=== PATIENT | female | born 1975 | race Caucasian/White ===

== ENCOUNTER 2020-08-08 06:55 | Outpatient (NON) | payer OTHER, SELFPAY ==
[2020-08-09 00:38] LABS: SARS-CoV-2 RNA PCR Negative
== END 2020-08-08 06:56 ==
PROVIDERS: PCP Physician Assistant; Visit Provider Physician Assistant
DX: Z20.828 Contact with and (suspected) exposure to other viral communicable diseases (principal)
CPT/HCPCS: 87635; C9803; U0003

== ENCOUNTER → 2021-11-24 00:12 | Outpatient (CLI) | payer OTHER, SELFPAY ==
[2021-11-24 20:23] LABS: SARS-CoV-2 RNA PCR Negative
== END ==
PROVIDERS: PCP Physician Assistant; Visit Provider Physician Assistant
DX: R68.89 Other general symptoms and signs (principal); Z20.822 Contact with and (suspected) exposure to COVID-19
CPT/HCPCS: C9803; U0003; U0005

== ENCOUNTER 2023-02-14 14:11 | Outpatient (CLI) | payer OTHER, SELFPAY ==
--- NOTE | ~2023-02-14 | MM_ITS ---
EXAMINATION: MM screening minna BI w vin HISTORY: Screening mammogram TECHNIQUE: Craniocaudal and mediolateral oblique 3-D tomosynthesis images were obtained and synthetic 2-D images were generated. CAD analysis was submitted and interpreted. COMPARISON: 08/14/2018 right diagnostic mammogram 07/30/2018 bilateral screening mammogram BREAST PARENCHYMAL COMPOSITION: There are scattered areas of fibroglandular density. FINDINGS: There is no evidence of suspicious mass, calcification, or architectural distortion to sugg est malignancy in either breast. There has been no suspicious interval change. IMPRESSION: 1. No mammographic evidence of malignancy. 2. Recommend routine screening mammography in one year. BI-RADS Category 1: Negative Reviewed, dictated and finalized at location A.
== END 2023-02-14 14:12 | disposition home or self-care (01) ==
LOC: ANHIMG 14:12
PROVIDERS: PCP Physician Assistant; Visit Provider Student in an Organized Health Care Education/Training Program
DX: Z12.31 Encounter for screening mammogram for malignant neoplasm of breast (principal)
CPT/HCPCS: 77063; 77067

== ENCOUNTER 2023-03-10 06:40 | Day surgery (SDC) | payer OTHER, SELFPAY ==
[2022-12-10 13:54] VITALS: BMI 21.7
[2023-03-04 08:41] VITALS: BMI 21.9
--- NOTE | 2023-03-07 15:21 | P.PNAN_ITS ---
Anes - Initial Pre Proc Eval Procedure: Operation Date: 03/10/23 08:30 Proposed Procedures p Screening Colonoscopy - Igor New MD Date/Time: 03/07/23 15:21 Surgeon: Igor New MD Pre Op Diagnosis: Family History of Colon Cancer Patient Data Age: 48 Gender: F Height: 1.7 m Weight: 63.5 kg Allergies Allergy/AdvReac Type Severity Reaction Status Date / Time Cephalosporins Allergy Mild unknown Verified 03/10/23 07:27 cephalexin Allergy Unknown Unknown Verified 03/10/23 07:27 Home Medications Medication Instructions Recorded Confirmed Type metoprolol succinate 25 mg 25 mg PO DAILY 09/04/21 03/10/23 History tablet,extended release 24 hr Patient hx anesthesia problems: none Family hx anesthesia problems: none Results Review: All pre-operative results and documents have been reviewed as part of the pre- operative evaluation. PMFSH Past Medical History Medical History History of miscarriage x2 History of x2 Hypertension Surgical History Surgical History History of delivery x 1 History of dilation and curettage 2007 x 1 Family History Family History (Updated 09/19/22 @ 14:04 by Mayra Spears MA) Father Hypertension Heart disease Mother Carcinoma of colon Sibling Depression Daughter Depression Grandparent Stomach cancer Bladder cancer Heart disease Family history of cardiovascular disease Other Cerebrovascular accident Diabetes mellitus Family history of arthritis Family history of malignant neoplasm Social History Social History Smoking status: Never smoker Alcohol intake: current Substance use: never Substance use type: does not use Living arrangements: alone Spiritual care concerns: No Anes - Eval Final PreProcedure Day of Procedure 03/07/23 15:21 Patient weight: normal Heart: regular rate and rhythm Lungs: clear to auscultation and normal air movement Airway: Mallampati scale class II Neurological: alert and oriented Last oral intake: >/= 8 hours ASA classification: II Emergent: no Anesthetic plan: proceed Anesthesia type and monitoring: general GIVS Results Review: All pre-operative results and documents have been reviewed as part of the pre- operative evaluation. Informed Consent: The patient's anesthetic plan and its attendant risks and benefits were discussed with the patient/family/POA. Questions were solicited and answers provided to the satisfaction of the patient/family/POA.
[2023-03-10 07:20] VITALS: BP 106/62; PULSE 77; RESP 20; TEMP 36.7; O2SAT 100
[2023-03-10] MEDS: LACTATED RINGERS 1,000 ML 150 ML IV CONT (07:43)
--- NOTE | 2023-03-10 08:12 | PM.HPGS ---
History of Present Illness History of Present Illness Consent: Risks, benefits, and alternatives have been discussed and questions answered. Patient agrees to proceed with procedure. Chief complaint: Family History of Colon Cancer Narrative: Dorothy Gasca is a 48 year old female here for first colonoscopy, mother had colon cancer at 58yo Review of Systems Constitutional: Constitutional: Denies headache(s) and Denies weakness Eyes: Eyes: Denies blurry vision ENT: Reports Normal hearing present, Denies headache(s) and Denies neck pain Cardiovascular: Cardiovascular: Denies chest pain and Denies dyspnea Respiratory: Respiratory: Denies dyspnea Gastrointestinal: Gastrointestinal: Reports no additional gastrointestinal complaints Genitourinary: Genitourinary: Denies dysuria Musculoskeletal: Musculoskeletal: Denies neck pain Integumentary/Breasts: Skin/Breast: Denies dry skin Neurologic: Reports Normal hearing present, Denies headache(s) and Denies weakness Psychiatric: Psychiatric: Denies anxiety Endocrine: Endocrine: Denies change in body appearance Hematologic/Lymphatic: Hematologic/Lymphatic: Denies easy bleeding Allergic/Immunologic: Allergic/Immunologic: Denies urticaria PMFSH Past Medical History Medical History (Updated 03/10/23 @ 08:13 by Igor New MD) Family history of colon cancer in mother History of miscarriage x2 History of x2 Hypertension Surgical History Surgical History History of delivery x 1 History of dilation and curettage 2007 x 1 Family History Family History (Updated 09/19/22 @ 14:04 by Mayra Spears MA) Father Hypertension Heart disease Mother Carcinoma of colon Sibling Depression Daughter Depression Grandparent Stomach cancer Bladder cancer Heart disease Family history of cardiovascular disease Other Cerebrovascular accident Diabetes mellitus Family history of arthritis Family history of malignant neoplasm Social History Social History Smoking status: Never smoker Alcohol intake: current Substance use: never Substance use type: does not use Living arrangements: alone Spiritual care concerns: No Meds Home Medications and Allergies Home Medications Medication Instructions Recorded Confirmed Type metoprolol succinate 25 mg 25 mg PO DAILY 09/04/21 03/10/23 History tablet,extended release 24 hr Allergies Allergy/AdvReac Type Severity Reaction Status Date / Time Cephalosporins Allergy Mild unknown Verified 03/10/23 07:27 cephalexin Allergy Unknown Unknown Verified 03/10/23 07:27 Vital Signs Vital Signs - 24 hr 03/10/23 07:20 Temperature 98.1 F Pulse Rate 77 Respiratory Rate 20 Blood Pressure 106/62 Pulse Oximetry 100 Oxygen Delivery Room Air Exam Const: General: comfortable and no acute distress HENMT: Face/Nose/Sinus: Normal nares present Eyes: General: appearance normal, both eyes and all related structures Neck: Neck: no JVD Resp: Auscultation: clear to auscultation bilaterally Cardio: Rate: regular rate Rhythm: regular rhythm GI: Inspection: non-distended GI Palp: Yes Soft to palpation Skin: General skin exam: normal color Neuro: General: gait normal Speech: normal speech Extrem: General: normal to inspection Psych: Mental Status: mental status grossly normal Assessment and Plan Assessment and plan (1) Family history of colon cancer in mother: Code(s): Z80.0 - Family history of malignant neoplasm of digestive organs Status: Acute Assessment and Plan: colonoscopy
[2023-03-10 08:41] VITALS: BP 93/62; PULSE 73; RESP 16; O2SAT 99
[2023-03-10 08:51] VITALS: BP 102/71; PULSE 66; RESP 16; O2SAT 100
[2023-03-10 09:01] VITALS: BP 101/70; PULSE 58; RESP 20; O2SAT 100
[2023-03-10] MEDS: ONDANSETRON INJ 4 MG/2 ML VIAL IV PUSH (09:04)
[2023-03-10 09:11] VITALS: BP 103/63; PULSE 63; RESP 20; O2SAT 100
--- NOTE | 2023-03-18 08:35 | WPDANESPN ---
Anes - Prog Note Post-Op Date/Time: 03/18/23 08:35 Cardiovascular status: normal Respiratory status: normal Airway patency: baseline Mental status: baseline Post-Op hydration status: normal Vital Signs: Last Vital Signs Temp 36.7 C 03/10/23 07:20 Pulse 63 03/10/23 09:11 Resp 20 03/10/23 09:11 BP 103/63 03/10/23 09:11 Pulse Ox 100 03/10/23 09:11 O2 Del Method Room Air 03/10/23 09:11 Pain Score (VAS): 0 Post-procedural complaints: none Patient Feedback: Patient satisfied with anesthetic care.
== END 2023-03-10 09:51 | disposition home or self-care (01) ==
PROVIDERS: PCP Physician Assistant; Visit Provider Internal Medicine Gastroenterology
PROC: 0DJD8ZZ Inspection of Lower Intestinal Tract, Via Natural or Artificial Opening Endoscopic (ICD-10-PCS; CPT 45378; principal; 2023-03-10 08:30)
DX: Z80.0 Family history of malignant neoplasm of digestive organs (principal)
CPT/HCPCS: 45378